=== PATIENT | female | born 1960 | race Caucasian/White ===

== ENCOUNTER → 2017-02-25 | Day surgery (SDC) | payer OTHER ==
[~2017-02-25] MED LIST: BACTRIM DS TAB1 EACH PO; CITRACAL + D CA1 TA1 PO; EFFEXOR37.5 MG PO; FEMARA2.5 MG PO; LIPITOR20 MG PO; NORCO 7.5-3251 EACH PO; VITAMIN D2000 UNIT PO
--- NOTE | ~2017-02-25 | OR ---
Unit #: [id number] #: [id number] Patient: ROSAMARIA LEUNG [id number] [address] [place], [place] [address] [id number] O MR#: [id number] NAME: ROSAMARIA LEUNG ROOM: Date of Procedure: 02/25/2017 Admission Date: 02/25/2017 Surgeon: Willy Dubon M.D. : 1960 Attending Physician: Willy Dubon M.D. Primary Care Physician: Charlette Nix M.D. OPERATIVE REPORT PREOPERATIVE DIAGNOSES Colorectal cancer screening. The patient has family history of colon cancer and personal history of breast cancer. PROCEDURE PERFORMED Colonoscopy up to cecum and terminal ileum with excellent preparation and good visualization. POSTOPERATIVE DIAGNOSES The patient had mild sigmoid and descending colon diverticulosis. Otherwise, examination was normal up to cecum and terminal ileum. The quality of prep was excellent. No polyps were seen. RECOMMENDATIONS Repeat colonoscopy in 5 years. SEDATION USED MAC. DESCRIPTION OF PROCEDURE Following detailed explanation of potential risks and complications of a colonoscopy, namely perforation, bleeding, and complications related to sedation, the patient was brought to GI lab and laid in the left lateral decubitus position. A digital rectal examination was performed, which was normal. Lubricated tip of the Olympus video colonoscope was inserted through the anus and advanced under direct vision. The scope was advanced and passed up to sigmoid into descending colon. Scant small diverticula were noted in this area. The scope tip was then navigated all the way up to cecum with visualization of the ileocecal valve and the appendiceal orifice. Preparation was excellent with good visualization and photodocumentation was obtained. Last few inches of terminal ileum also visualized after intubation of the ileocecal valve and appeared normal. Successive segments of the colonic mucosa were examined upon withdrawal and appeared unremarkable. There being no polyps, mass lesions, or AVMs. Other than the scant diverticula seen in the sigmoid and descending colon, no other abnormalities were noted. The patient did not have any hemorrhoids at anal verge. The scope was then withdrawn. The patient returned to the recovery area. She tolerated the procedure without any postprocedure complications. Dictated by... Unit #: [id number] #: [id number] Patient: ROSAMARIA LEUNG Willy Marcos Dubon TD: 02/25/2017 22:13 JOB #: [id number] OPERATIVE REPORT Page 1 of 1 X Willy Dubon MD PROCEDURE OPERATIVE NOTE
== END | disposition home or self-care (01) ==
LOC: COPS 06:25
DX: Z12.11 Encounter for screening for malignant neoplasm of colon (principal); K57.30 Diverticulosis of large intestine without perforation or abscess without bleeding; Z85.3 Personal history of malignant neoplasm of breast; Z80.0 Family history of malignant neoplasm of digestive organs; E78.5 Hyperlipidemia, unspecified; Z90.710 Acquired absence of both cervix and uterus; Z41.1 Encounter for cosmetic surgery
CPT/HCPCS: J2250

== ENCOUNTER 2017-06-15 05:37 | Observation (INO) | payer OTHER ==
--- NOTE | ~2017-06-15 | DS ---
Unit #: [id number] #: [id number] Patient: ROSAMARIA LEUNG [id number] [address] [address] [id number] I MR#: [id number] NAME: ROSAMARIA LEUNG ROOM: 232 Age: 57 Sex: F Admission Date: 06/15/2017 : 1960 Discharge Date: 06/17/2017 Attending Physician: Familia Lundberg M.D. Primary Care Physician: Charlette Nix M.D. DISCHARGE SUMMARY ADMITTING DIAGNOSIS Acute appendicitis. DISCHARGE DIAGNOSIS Acute perforated appendicitis. CONSULTATIONS None. PROCEDURE PERFORMED On 06/15/2017 she underwent laparoscopic appendectomy. BRIEF HOSPITAL COURSE This is a 57-year-old lady who presented with right lower quadrant pain and findings consistent with acute appendicitis. She underwent laparoscopic appendectomy and was noted to have some purulence in the right lower quadrant. A JACK drain was placed. She was kept for 48 hours for IV antibiotics, and her cultures ended up growing out E-coli that was sensitive to Bactrim. Her JACK drain was discontinued. DISPOSITION Discharged to home. MEDICATIONS She was given a prescription for [place] and Bactrim. DISCHARGE INSTRUCTIONS 1. She was told to call the office if she has any fevers or worsening abdominal pain. Otherwise, we will see her back in 2 weeks. 2. She has also been instruction no driving until off pain pills for 24 hours. 1. Dictated by... Rodney Lopez III, M.D. VCL/nathan TD: 06/20/2017 08:06 JOB #: [id number] Unit #: [id number] #: [id number] Patient: ROSAMARIA LEUNG DISCHARGE SUMMARY Page 1 of 1 X Rodney Lopez III, MD X DISCHARGE SUMMARY
--- NOTE | ~2017-06-15 | CO ---
Unit #: [id number] #: [id number] Patient: ROSAMARIA LEUNG [id number] [address] [address] [id number] I MR#: [id number] NAME: ROSAMARIA LEUNG ROOM: 232 Age: 57 Sex: F Admission Date: 06/15/2017 : 1960 Attending Physician: Familia Lundberg M.D. Primary Care Physician: Charlette Nix M.D. Consultation Date: 06/15/2017 CONSULTATION REPORT REASON FOR CONSULTATION 1. Right lower quadrant pain. 2. Acute appendicitis. CONSULTING PHYSICIAN Dr. Benitez, [facility]'s Emergency Room Physician. Thank you very much for asking us to see Ms. Leung. HISTORY OF PRESENT ILLNESS She is a 57-year-old white female, whose past medical history is remarkable for x3, a partial hysterectomy, left mastectomy with reconstruction, bilateral breast reduction, and tummy tuck, who presented with a 24-hour history of diffuse abdominal pain. Became more localized in the right lower quadrant. She had nausea, vomiting, and some loose bowel movements. She denies any GI bleeding. She had a colonoscopy earlier this year that was normal. She had evaluation in the emergency room, where on CT scan, she was found to have changes consistent with acute appendicitis. She presents at this time for further evaluation and treatment. ALLERGIES No known medical allergies. MEDICATIONS Lipitor, vitamin D, and Citracal. PAST SURGICAL HISTORY x3, partial hysterectomy, left mastectomy with reconstruction, bilateral breast reduction, tummy tuck. SOCIAL HISTORY Positive alcohol use. No tobacco use. IMMUNIZATION STATUS Unknown. FAMILY HISTORY Noncontributory. REVIEW OF SYSTEMS Negative except for above. Unit #: [id number] #: [id number] Patient: ROSAMARIA LEUNG PHYSICAL EXAMINATION GENERAL: Well-developed, well-nourished white female, in mild distress. Awake, alert, and oriented x3. VITAL SIGNS: Temperature 98.2, pulse 120, respiratory rate 18, and blood pressure 127/84. NECK: Supple. No thyromegaly or adenopathy. Sclerae are nonicteric. Extraocular movements are intact. BACK: No CVA or spinous tenderness. ABDOMEN: Soft, diffusely tender, but maximal in the right lower quadrant with guarding. EXTREMITIES: No calf tenderness. No erythema. DIAGNOSTIC STUDIES LABORATORY RESULTS: Reveal the patient to have a white count of 22.4 with hemoglobin of 15.1, and hematocrit of 45.4. CMP shows glucose of 212, chloride of 99; however, liver function studies, amylase, and lipase were normal. Urinalysis revealed negative nitrites, negative leukocyte esterase. IMPRESSION A 57-year-old white female with right lower quadrant pain and a CAT scan consistent with acute appendicitis. We have recommended diagnostic laparoscopy, laparoscopic appendectomy, possible open appendectomy. All the risks and benefits have been fully explained to the patient in detail including the risk of bleeding, infection, open procedure, a larger more extensive procedure as well as transfer, , and other risks. She understands completely and requests to proceed. Dictated by... Marcos Sparrow/kaity TD: 06/15/2017 10:05 JOB #: [id number] CC: [facility] CONSULTATION REPORT Page 1 of 1 X Familia Lundberg MD X CONSULTATION REPORT
--- NOTE | ~2017-06-15 | OR ---
Unit #: [id number] #: [id number] Patient: ROSAMARIA LEUNG [id number] [id number] [facility]. [place], [place] [address] [id number] Tanna MR#: [id number] NAME: ROSAMARIA LEUNG ROOM: [facility] Date of Procedure: 06/15/2017 Admission Date: 06/15/2017 Surgeon: Rodney Lopez III, M.D. : 1960 Attending Physician: Familia Lundberg M.D. Primary Care Physician: Charlette Nix M.D. OPERATIVE REPORT PREOPERATIVE DIAGNOSIS Acute appendicitis. POSTOPERATIVE DIAGNOSIS Acute appendicitis. PROCEDURE PERFORMED Laparoscopic appendectomy. ANESTHESIA General. SPECIMENS Appendix to pathology. COMPLICATIONS None apparent. ESTIMATED BLOOD LOSS Minimal. DRAINS One flat Franklin-Whittaker drain was placed in the right lower quadrant. COMPLICATIONS None apparent. INDICATIONS FOR PROCEDURE This is a 57-year-old lady, who presented with acute abdominal pain. She had a CT which confirmed appendicitis. She is here today for laparoscopic appendectomy. DESCRIPTION OF PROCEDURE After consent was obtained, the patient was brought to the operating room and placed in the supine position. General anesthetic was administered. Her abdomen was prepped and draped in standard surgical fashion. I made a 1 cm incision above the umbilicus. I dissected down and identified the fascia between 2 Talon clamps and used a Veress needle to obtain CO2 pneumoperitoneum. After pneumoperitoneum was established, I placed a 5-mm trocar in that location without any difficulty. Next, under direct visualization, a 12 mm port was placed in the right lateral abdomen and a 5-mm port was placed in the suprapubic region. She had some purulent Unit #: [id number] #: [id number] Patient: ROSAMARIA LEUNG fluid in the right lower quadrant. I was able to identify the appendix and mobilized it. After doing so, it looked like there may be a small perforation of the appendix, although there was no fecal contamination. I was able to clearly identify the base of the appendix and created a window between that and the mesoappendix. I then fired a blue load across the base of the appendix and a white load across the mesoappendix. I had excellent hemostasis. The appendix was placed within the EndoCatch bag. I then aspirated all the purulent fluid in the right lower quadrant and placed a flat Franklin-Whittaker drain in the right lower quadrant and brought it out through the suprapubic port incision. The drain was secured to the level of skin with a 2-0 silk suture. I had excellent hemostasis and all needle, sponge, and instrument counts were correct x2. I removed all the trocars releasing pneumoperitoneum. All the incisions were injected with 0.25% plain Marcaine and I reapproximated the skin edges with interrupted 4-0 Vicryl subcuticular suture. Steri-Strips were then applied. The patient tolerated the procedure without any problems and returned to the recovery room in stable condition. Dictated by... Rodney Lopez III, M.D. VCL/kaity TD: 06/16/2017 00:53 JOB #: [id number] OPERATIVE REPORT Page 1 of 1 X Rodney Loepz III, MD PROCEDURE OPERATIVE NOTE
--- NOTE | ~2017-06-15 | CT2 ---
[facility] A Service of [facility] & [facility] RADIOLOGY TEXT RESULTS PATIENT: ROSAMARIA LEUNG LOCATION: [facility] : 58 UNIT #: [id number] AGE: [address]: Froylan Benitez MD SEX: F ORDER DR: [id number] [facility] [address] [place], [place] [address] [id number] MR#: [id number] Acc #: [id number] NAME: ROSAMARIA LEUNG : 1960 SEX: F STUDY DATE/TIME: 06/15/2017 7:31 UNIT: [facility] ROOM: STUDY DESCRIPTION: CT Abd and Pelv W Cont Attending Physician: Froylan Benitez M.D. Ordering Physician: Froylan Benitez M.D. Primary Care Physician: Charlette Nix M.D. MEDICAL IMAGING REPORT This report is preliminary unless electronic signature is present EXAM CT of the abdomen and pelvis with contrast HISTORY Right-sided flank pain and vomiting since yesterday. TECHNIQUE The patient was given 100 mL of Isovue-370. Axial 5.0 mm images were obtained through the abdomen and pelvis. This CT exam was performed with one or more of the following radiation dose reduction techniques: automatic exposure control, adjustment of mA and/or kV according to patient size, and iterative reconstruction. COMPARISON None FINDINGS The lung bases are clear. The patient is status post a left mastectomy with implant partially visualized. There is a rounded low density lesion in the posterior upper right lobe of the liver measuring 1.7 cm in diameter. The rest of the liver is normal. The gallbladder, spleen, pancreas, adrenal glands and kidneys are normal. There is a splenic artery aneurysm with a fairly thickly calcified wall. This aneurysm measures 1.9 cm in diameter. There is a second low density lesion in the lower right hepatic lobe that measures 9.0 mm in diameter. The appendix is abnormal. It is dilated and surrounded by inflammation and there is an appendicolith at its juncture with the cecum that measures about 1.0 cm in diameter. The appendix lies posterior to the cecum. The rest of the bowel is normal. The uterus has been removed. There are no adnexal masses. The bones are unremarkable. [facility]. [facility] A Service of [facility] & [facility] RADIOLOGY TEXT RESULTS PATIENT: ROSAMARIA LEUNG LOCATION: [facility] : 58 UNIT #: [id number] AGE: [address]: Froylan Benitez MD SEX: F ORDER DR: IMPRESSION 1. Findings indicative of appendicitis with a dilated appendix that measures over 1.0 cm in diameter. It contains small stones and is surrounded by inflammation. It lies in the right lower flank somewhat posterior to the cecum. 2. There are two low density lesions in the liver which are nonspecific. The larger one is 17.0 mm in size and the smaller one is 9.0 mm in size. They could represent cysts or hemangiomas. The patient has a history of breast cancer and has probably had prior CT imaging and comparison with those exams is recommended. Metastatic disease cannot be excluded but the patient's breast cancer was in 2006 so it is very unlikely that this represents metastatic breast cancer. 3. 2.0 cm splenic artery aneurysm which has a thick calcified wall. Dictated by... Sacha Ga M.D. THIS IS AN ELECTRONICALLY VERIFIED REPORT Sacha Ga M.D. at 06/15/2017 1:08 PM Angela TD: 06/15/2017 09:56 JOB #: [id number] MEDICAL IMAGING REPORT Page 1 of 1 COPY
[~2017-06-15 05:37] MED LIST changes: -BACTRIM DS TAB1 EACH PO; -NORCO 7.5-3251 EACH PO
[2017-06-15 06:20] LABS: BASOPHIL% 0.1 % (0-2.5); DIFF IND YES; HEMATOCRIT 45.4 % (35.0-45.0); HEMOGLOBIN 15.1 gm/dL (12.0-16.0); LYMPHOCYTE# 0.7 X10e3 (1.0-3.5); LYMPHOCYTE% 3.3 % (17.0-45.0); MEAN CELL VOLUME 84.7 FL (83-96); MEAN CORPUSCULAR HEMOGLOBIN 28.2 PG (28-34); MEAN CORPUSCULAR HGB CONC 33.3 g/dL (30-36); MEAN PLATELET VOLUME 7.7 FL (6.5-11.5); MONOCYTE# 0.8 X10e3 (0-1.0); MONOCYTE% 3.6 % (3.0-12.0); NEUTROPHIL# 20.8 X10e3 (1.5-7.1); PLATELET COUNT 324 X10e3 (140-420); RED BLOOD COUNT 5.37 X10e (3.90-5.30); RED CELL DISTRIBUTION WIDTH 13.8 % (11.0-15.5); WHITE BLOOD COUNT 22.4 X10e3 (4.0-10.5)
[2017-06-15 06:44] LABS: PLATELET ESTIMATE NORMAL (NORMAL); RBC NORMAL YES
[2017-06-15 06:58] LABS: ALBUMIN SERUM 4.1 g/dL (3.5-5.0); BILIRUBIN, DIRECT 0.2 mg/dL (0.0-0.2); BILIRUBIN,INDIRECT 1.2 mg/dL (0.0-0.9); BILIRUBIN,TOTAL 1.4 mg/dL (0.2-2.0); BUN/CREATININE RATIO 14.44; CALCIUM SERUM 9.3 mg/dL (8.4-10.2); CREATININE SERUM 0.9 mg/dL (0.6-1.4); GLOM FILT RATE Estimated 70.5 mL/min (>60); POTASSIUM 3.9 mmol/L (3.5-5.1); PROTEIN TOTAL SERUM 7.8 g/dL (6.0-8.3)
[2017-06-15 07:06] LABS: URINE SOURCE CLEAN CATCH
[2017-06-15 07:10] LABS: URINE APPEARANCE CLEAR; URINE BILIRUBIN NEG (NEG); URINE BLOOD 2+ (NEG); URINE COLOR YELLOW; URINE GLUCOSE >1000 MG/DL (NEG); URINE KETONE 2+ (NEG); URINE LEUKOCYTE ESTERASE NEG (NEG); URINE NITRATE NEG (NEG); URINE PH 5.5 (5-8); URINE PROTEIN 2+ (NEG); URINE SPECIFIC GRAVITY 1.041 (1.003-1.035); URINE UROBILINOGEN 0.2 MG/DL (NEG)
[2017-06-15 07:12] LABS: URINE BACTERIA AUWI NEG (NEGATIVE); URINE SQUAMOUS EPITHELIAL CELL OCC /[HPF]
[2017-06-15 07:13] LABS: CULTURE INDICATED? NO
[2017-06-16 06:18] LABS: CALCIUM SERUM 8.3 mg/dL (8.4-10.2); CREATININE SERUM 0.8 mg/dL (0.6-1.4); GLOM FILT RATE Estimated 81.3 mL/min (>60); POTASSIUM 4.1 mmol/L (3.5-5.1)
[2017-06-16 06:40] LABS: HEMATOCRIT 36.2 % (35.0-45.0); MEAN CELL VOLUME 85.1 FL (83-96); MEAN CORPUSCULAR HEMOGLOBIN 28.7 PG (28-34); MEAN CORPUSCULAR HGB CONC 33.7 g/dL (30-36); MEAN PLATELET VOLUME 7.8 FL (6.5-11.5); RED BLOOD COUNT 4.25 X10e (3.90-5.30); RED CELL DISTRIBUTION WIDTH 13.9 % (11.0-15.5); WHITE BLOOD COUNT 18.7 X10e3 (4.0-10.5)
[2017-06-16 06:49] LABS: HEMOGLOBIN 12.2 gm/dL (12.0-16.0)
[2017-06-17 07:29] LABS: HEMATOCRIT 35.1 % (35.0-45.0); HEMOGLOBIN 11.9 gm/dL (12.0-16.0); MEAN CELL VOLUME 84.6 FL (83-96); MEAN CORPUSCULAR HEMOGLOBIN 28.7 PG (28-34); MEAN CORPUSCULAR HGB CONC 33.9 g/dL (30-36); MEAN PLATELET VOLUME 7.8 FL (6.5-11.5); RED BLOOD COUNT 4.15 X10e (3.90-5.30); RED CELL DISTRIBUTION WIDTH 13.8 % (11.0-15.5); WHITE BLOOD COUNT 12.9 X10e3 (4.0-10.5)
[2017-06-17] MEDS ORDERED: BACTRIM DS TAB1 EACH PO (07:29)
[2017-06-17] MEDS ORDERED: NORCO 7.5-3251 EACH PO (07:29)
== END 2017-06-17 08:53 | disposition home or self-care (01) | DRG 373 ==
LOC: CED 05:37 → C2A 15:44
PROVIDERS: Emergency Medicine; Surgery
DX: K35.3 Acute appendicitis with localized peritonitis (principal); E78.5 Hyperlipidemia, unspecified; Z79.899 Other long term (current) drug therapy; Z90.710 Acquired absence of both cervix and uterus; Z98.890 Other specified postprocedural states; Z90.12 Acquired absence of left breast and nipple
CPT/HCPCS: 74177; 80048; 80076; 81003; 83690; 85025; 85027; 87070; 87075; 87077; 87186; 87205; 88304; 94010; 96361; 96365; 96366; 96367; 96374; 96375; 96376; 99291; G0378; J0295; J0330; J1100; J1885; J2250; J2270; J2405; J2543; J2710; J3010; Q9967